=== PATIENT | female | born 1995 | race Caucasian/White ===

== ENCOUNTER 2021-12-17 21:03 | Emergency (ER) | payer OTHER, SELFPAY ==
--- NOTE | ~2021-12-17 | XR_ITS ---
EXAMINATION: XR FINGER, RIGHT CLINICAL INFORMATION: Injury with pain COMPARISON: None TECHNIQUE: Three views of the right ring finger. FINDINGS: No acute fracture or dislocation is identified. The joint spaces throughout the hand and wrist are maintained. No osteophytes or erosions. XR/XR finger RT min 2V IMPRESSION: No acute osseous injury identified.
[2021-12-17 22:19] VITALS: BP 132/77; PULSE 57; RESP 16; TEMP 36.4; O2SAT 99; BMI 21.2
--- NOTE | 2021-12-17 22:36 | ED.EXTPRO ---
HPI - Extremity Problem General Chief complaint: Extremity Injury, Upper Stated complaint: Finger inj at work Time Seen by Provider: 12/17/21 22:25 Source: patient Mode of arrival: ambulatory Limitations: no limitations History of Present Illness HPI Narrative: 26 yo female right hand dominant here with 4th digit pain. Patient reports a patient grabbed her finger. When she pulled away she heard a popping noise. Since then pain in the digit. NO numbness, weakness or tingling. Related Data Allergies Allergy/AdvReac Type Severity Reaction Status Date / Time No Known Allergies Allergy Unverified 11/15/19 16:14 Review of Systems Review of Systems: Yes all other systems are reviewed and are negative Constitutional: Constitutional: Reports no additional constitutional complaints, Denies fever(s) and Denies weakness Cardiovascular: Cardiovascular: Reports no additional cardiovascular complaints, Denies chest pain, Denies leg edema and Denies dyspnea Respiratory: Respiratory: Reports no additional respiratory complaints and Denies dyspnea Gastrointestinal: Gastrointestinal: Reports no additional gastrointestinal complaints, Denies nausea and Denies vomiting Musculoskeletal: Musculoskeletal: Reports no additional musculoskeletal complaints, Reports arthralgias, Reports joint swelling, Reports limited range of motion, Denies numbness and Denies tingling Integumentary/Breasts: Skin/Breast: Reports system reviewed and no additional complaints, except as docu and Denies rash Neurologic: Reports system reviewed and no additional complaints, except as documented, Denies Abnormal speech present, Denies numbness, Denies tingling and Denies weakness PMFSH Past Medical History Attestation statement: The following information was validated with the patient. Source: old records reviewed and nursing notes reviewed Social History Social History Advance Directives: No Advance Directives Information Provided: No Physical Exam Vital Signs: Vital Signs: Last Vital Signs Temp 97.6 F 12/17/21 22:19 Pulse 57 12/17/21 22:19 Resp 16 12/17/21 22:19 BP 132/77 12/17/21 22:19 Pulse Ox 99 12/17/21 22:19 O2 Del Method 12/17/21 22:19 BMI result Body Mass Index 21.2 Const: General: cooperative, healthy appearing, comfortable and no acute distress Orientation/consciousness: patient oriented x3 Limitations: no limitations HEENT: Head: Yes normal to inspection Ears: hearing grossly normal bilaterally Eyes: General: appearance normal, both eyes and all related structures Neck: Neck: Yes normal visual inspection Chest: Chest palpation & inspection: normal inspection of the chest Resp: Effort & Inspection: normal respiratory effort Skin: General skin exam: no rashes or lesions noted Neuro: General: patient oriented x3 and moves all extremities Cognition (Neuro): normal cognition Speech: No Abnormal speech present Gait exam (Neuro): Normal gait present Extrem: General: Yes normal to inspection Hand/finger images: 1. Tenderness-no swelling or ecchymosis noted. FROM of the 4th digit. NV intact distally Course Course Course Narrative: X-ray show no bony abnormality. Likely sprain. Recommend rice at home. Reviewed worrisome signs and symptoms of when to return to the emergency room. Comfortable plan for discharge home. MDM - Extremity (Nontraumatic) MDM Narrative Medical decision making narrative: 26 yo female right hand dominant here with right 4th digit pain after injury while occurred while working. Will check x-rays Imaging Data finger xray: Attestation: I personally reviewed and interpreted this imaging study as follows: Radiologist's impression: CLINICAL INFORMATION: Injury with pain? COMPARISON: None? TECHNIQUE: Three views of the right ring finger. FINDINGS: No acute fracture or dislocation is identified. The joint spaces throughout the hand and wrist are maintained. No osteophytes or erosions.? XR/XR finger RT min 2V IMPRESSION: No acute osseous injury identified. ? Discharge Plan Discharge Clinical Impression: Finger sprain Patient Disposition: Home, Self-Care Instructions: Sprain (ED), Finger Sprain (ED) Additional Instructions: Ice to the area Motrin or tylenol for pain as needed Follow-up with work connection as needed [phone] Interventions: ED Discharge Assessment Last Done: 12/17/21 23:55 Discharge Date/Time: 12/17/21 23:56
== END 2021-12-17 23:56 | disposition home or self-care (01) ==
PROVIDERS: Emergency Provider Emergency Medicine; PCP Internal Medicine
DX: S63.614A Unspecified sprain of right ring finger, initial encounter (principal); M79.644 Pain in right finger(s); Y33.XXXA Other specified events, undetermined intent, initial encounter; Y93.9 Activity, unspecified; Y92.9 Unspecified place or not applicable; Y99.0 Civilian activity done for income or pay
CPT/HCPCS: 73140; 99282; 99283

== ENCOUNTER 2023-06-16 18:24 | Emergency (ER) | payer OTHER, SELFPAY ==
--- NOTE | ~2023-06-16 | XR_ITS ---
EXAMINATION: XR HAND/WRIST, RIGHT CLINICAL INFORMATION: Pain and trauma COMPARISON: None TECHNIQUE: PA, lateral, navicular and oblique views of the right hand and wrist. FINDINGS: The bones and soft tissues are normal. No fracture. Alignment is anatomic. Joint spaces are maintained. No erosions or soft tissue calcifications. XR/XR hand wrist RT IMPRESSION: Normal radiographs of the right hand and wrist.
[2023-06-16 18:39] VITALS: BP 123/87; PULSE 76; RESP 16; TEMP 37.2; O2SAT 100; BMI 22.7
--- NOTE | 2023-06-16 18:40 | ED_ITS ---
HPI - General Adult General Chief complaint: Extremity Injury, Upper Stated complaint: Employee injured here Time Seen by Provider: 06/16/23 18:56 Source: patient Mode of arrival: ambulatory Limitations: no limitations History of Present Illness HPI narrative: patient comes to the emergency room complaining of a contusion to the right forearm. Patient states that she was at work, trying to hold down a combative [employer] patient. Patient got kicked in the forearm. Patient states she has a bit of numbing tingling in the hand. No direct trauma to the actual hand , wrist or elbow. Related Data Allergies Allergy/AdvReac Type Severity Reaction Status Date / Time No Known Allergies Allergy Verified 06/16/23 18:41 Review of Systems Review of Systems: Constitutional : No Weight loss, No Fever, No Chills, No Night Sweats, No Fatigue, No Malaise ENT/Mouth : No Hearing loss, No Ear Pain, No Nasal Congestion, No Sinus Pain, No Hoarseness, No sore throat, No Rhinorrhea, No Swallowing Difficulty Eyes: No Eye Pain, No Swelling, No Redness, No Foreign Body, No Discharge, No Vision Changes Cardiovascular : No Chest Pain, No SOB, No Dyspnea on Exertion, No Orthopnea, No Edema, No Palpitations Respiratory : No Cough, No Sputum, No Wheezing, No Smoke Exposure, No Dyspnea Gastrointestinal : No Nausea, No Vomiting, No Diarrhea, No Constipation, No abdominal Pain, No Hematochezia, No Melena Genitourinary : no irregular bleeding, No Dysuria, No Urinary Frequency, No Hematuria, No Urinary Incontinence, No Urgency, No Flank Pain, No Urinary Flow Changes, No Hesitancy Musculoskeletal : Complaining of pain in the right forearm Skin : No Skin Lesions, No rash Neuro : No Weakness, No Numbness, No Paresthesias, No Loss of Consciousness, No Dizziness, No Headache Psych : No Anxiety/Panic, No Depression, No SI/HI/AH/VH, No Social Issues, Heme/Lymph: No Bruising, No Bleeding,No Lymphadenopathy Endocrine : No Polyuria, No Polydipsia, No Temperature Intolerance [facility] Social History Social History Advance Directives: No Advance Directives Information Provided: No Physical Exam ED Vital Signs: Vital Signs - 24 hr 06/16/23 18:39 Temperature 99 F Pulse Rate 76 Respiratory Rate 16 Blood Pressure 123/87 Pulse Oximetry 100 Oxygen Delivery Method Room Air BMI result Body Mass Index 22.7 Const Other: Appearance: Alert. Oriented X3. No acute distress. Eyes: Pupils equal, round and reactive to light. ENT: Pharynx normal. Neck: Normal inspection. Neck supple. No lymph nodes noted. No crepitus CVS: Normal heart rate and rhythm. Pulses normal. Normal S1 and S2 Respiratory: No respiratory distress. Breath sounds normal. No Wheezing. No rales Abdomen: Soft and nontender. No rigidity. No distention. Skin: Skin warm and dry. Normal skin color. Normal skin turgor. Extremities: No lower extremity edema. No Lacerations. No Rash, no ecchymosis, normal range of motion with flexion-extension of elbow wrist and fingers. Neuro: Oriented X 3. No motor deficit. No sensory deficit. Moving all extremities. No slurred speech. CN 2 through 12 grossly intact Psych: calm, cooperative, normal affect Course Course Course Narrative: This is an RME: Additional HPI, ROS, PE not included below will be deferred to primary provider. 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 Plan- xray Medical Decision Making Medical Decision Making MDM Narrative: - My interpretation of x-ray of the hand and wrist: Normal alignment, no fracture Differential Diagnosis Differential Diagnoses: The differential diagnosis associated with the presentation includes ( contusion, dislocation, fracture radius/ulna) Independent Interpretation I performed an independent interpretation of an: Plain X-Ray Radiology Impression Discussion of test interpretation with radiology: I have reviewed the radiologist's reading. Radiologist Impression: FINDINGS: The bones and soft tissues are normal. No fracture. Alignment is anatomic. Joint spaces are maintained. No erosions or soft tissue calcifications. XR/XR hand wrist RT IMPRESSION: Normal radiographs of the right hand and wrist Discharge Plan Discharge Clinical Impression: Arm contusion Patient Disposition: Home, Self-Care Instructions: Contusion in Adults (ED) Additional Instructions: Please follow-up with your primary care physician tomorrow. If you have any worsening or new symptoms, please return to the emergency room or call [phone] Print Language: Mauritian
[2023-06-16 19:49] VITALS: BP 128/82; PULSE 67; RESP 19; TEMP 36.8; O2SAT 100
[2023-06-16 19:56] VITALS: BP 128/82; PULSE 67; RESP 19; TEMP 36.8; O2SAT 100
== END 2023-06-16 19:57 | disposition home or self-care (01) ==
PROVIDERS: Emergency Provider Emergency Medicine; PCP Internal Medicine
DX: S50.11XA Contusion of right forearm, initial encounter (principal); W50.0XXA Accidental hit or strike by another person, initial encounter; Y93.9 Activity, unspecified; Y92.239 Unspecified place in hospital as the place of occurrence of the external cause; Y99.0 Civilian activity done for income or pay
CPT/HCPCS: 73110; 73130; 99282; 99283